=== PATIENT | female | born 1985 | race African-American/Black ===

== ENCOUNTER 2021-09-07 13:43 | Emergency (ER) | payer OTHER, BC ==
[2021-09-07] MEDS ORDERED: Ketorolac Tromethamine 30 MG/ML VIAL ONE (15:13)
== END 2021-09-07 15:10 | disposition home or self-care (01) ==
LOC: CSHERS 13:43
DX: S29.012A Strain of muscle and tendon of back wall of thorax, initial encounter (principal); V49.9XXA Car occupant (driver) (passenger) injured in unspecified traffic accident, initial encounter
CPT/HCPCS: 96372; 99283; J1885

== ENCOUNTER 2022-12-28 06:39 | Emergency (ER) | payer BC ==
[2022-12-28] MEDS ORDERED: Morphine 4 MG/ML VIAL ONE (07:35)
[2022-12-28] MEDS ORDERED: Ondansetron PF 4 MG/2 ML Vial ONE (07:36)
[2022-12-28 07:49] LABS: #Basophils 0.1 10x3/uL (0.0-0.2); #Monocytes 0.9 10x3/uL (0.0-1.1); %Basophils 0.4 % (0.0-2.0); %Eosinophils 0.4 % (0.0-6.0); %Lymphocytes 11.4 % (18.0-47.0); %Monocytes 8.3 % (0.0-10.0); %Neutrophils 79.1 % (40.0-75.0); Hematocrit 37.7 % (34.9-44.5); Hemoglobin 12.6 g/dL (12.0-15.5); Mean Corpuscular HGB CONC 33.4 g/dL (32.0-36.0); Mean Corpuscular Hemoglobin 28.2 pg (27.0-33.0); Mean Corpuscular Volume 84.3 fl (81.6-98.3); Mean Platelet Volume 9.1 fl (7.4-10.4); Platelet Count 347 10x3/uL (150-450); RBC Distribution Width 12.7 % (11.5-14.5); Red Blood Cell (RBC) Count 4.47 10x6/uL (3.90-5.03); White Blood Cell (WBC) Count 11.4 10x3/uL (3.5-10.5)
[2022-12-28 08:08] LABS: ALT (SGPT) 88 U/L (8-55); AST (SGOT) 137 U/L (5-34); Albumin 3.9 g/dL (3.5-5.0); Alkaline Phosphatase 139 U/L (40-110); Anion Gap 13 mmol/L (10-20); BUN (Urea Nitrogen) 8 mg/dL (7.0-18.7); Bilirubin, Total 0.7 mg/dL (0.2-1.2); Calc. Creatinine Clearance 0 mL/min (70-130); Calcium 8.9 mg/dL (7.8-10.44); Carbon Dioxide 20 mmol/L (22-29); Chloride 109 mmol/L (98-107); Estimated GFR 103; Globulin 2.7 g/dL (2.4-3.5); Glucose 81 mg/dL (70-105); Lipase 13 U/L (8-78); Potassium 4.3 mmol/L (3.5-5.1); Protein, Total 6.6 g/dL (6.0-8.3); Sodium 138 mmol/L (136-145)
== END 2022-12-28 09:43 | disposition home or self-care (01) ==
LOC: CSHERS 06:39
DX: K80.20 Calculus of gallbladder without cholecystitis without obstruction (principal); G43.909 Migraine, unspecified, not intractable, without status migrainosus
CPT/HCPCS: 76705; 80053; 83690; 83735; 85025; 96374; 96375; J2270; J2405

== ENCOUNTER 2023-02-03 11:46 | Outpatient (CLI) | payer BC ==
[2023-02-03 13:42] LABS: BHCG - Serum Negative (NEGATIVE); Pregs Control Background? CLEAR/WHITE (CLR/WHITE); Pregs Control Bar Appear? YES (CONTROL BAR)
[2023-02-03 13:45] LABS: ALT (SGPT) 42 U/L (8-55); AST (SGOT) 29 U/L (5-34); Albumin 3.8 g/dL (3.5-5.0); Alkaline Phosphatase 112 U/L (40-110); Anion Gap 10 mmol/L (10-20); BUN (Urea Nitrogen) 8 mg/dL (7.0-18.7); Bilirubin, Total 0.2 mg/dL (0.2-1.2); Calc. Creatinine Clearance 0 mL/min (70-130); Calcium 8.4 mg/dL (7.8-10.44); Carbon Dioxide 23 mmol/L (22-29); Chloride 108 mmol/L (98-107); Estimated GFR 113; Globulin 2.1 g/dL (2.4-3.5); Glucose 74 mg/dL (70-105); Potassium 4.3 mmol/L (3.5-5.1); Protein, Total 5.9 g/dL (6.0-8.3); Sodium 137 mmol/L (136-145)
== END 2023-02-03 11:47 | disposition home or self-care (01) ==
LOC: CSHLAB 11:46
PROVIDERS: ATTEND Surgery
DX: Z01.812 Encounter for preprocedural laboratory examination (principal); K80.20 Calculus of gallbladder without cholecystitis without obstruction
CPT/HCPCS: 80053; 84703

== ENCOUNTER 2023-02-13 10:35 | Day surgery (SDC) | payer BC ==
[2023-02-03 12:14] VITALS: BMI 32.9
[2023-02-13] MEDS ORDERED: PROPOFOL 20 ML ONE (12:22)
[2023-02-13] MEDS ORDERED: Fentanyl 250 MCG/5 ML VIAL ONE (12:22)
[2023-02-13] MEDS ORDERED: EPINEPHrine 1 MG/ML VIAL ONE (12:23)
[2023-02-13] MEDS ORDERED: Bupivacaine PF 0.5% 30 ML VIAL ONE (12:23)
[2023-02-13] MEDS ORDERED: Midazolam HCl 2 mg/2 ml Vial ONE (12:23)
[2023-02-13] MEDS ORDERED: Rocuronium Bromide 10 MG/ML (10ML VIAL) ONE (12:24)
[2023-02-13] MEDS ORDERED: Ondansetron PF 4 MG/2 ML Vial ONE (12:24)
[2023-02-13] MEDS ORDERED: Dexamethasone 4 mg/ml Vial ONE (12:24)
[2023-02-13] MEDS ORDERED: CEFAZOLIN 2 GM VIAL ONE (12:42)
[2023-02-13] MEDS ORDERED: Ketorolac Tromethamine 30 MG/ML VIAL ONE (13:34)
[2023-02-13] MEDS ORDERED: Glycopyrrolate 0.2 MG/ML 5 ML SYRINGE ONE (13:34)
[2023-02-13] MEDS ORDERED: Acetaminophen 325 MG TAB PO PRN (13:51)
[2023-02-13] MEDS ORDERED: HYDROcodone/Acetaminophen 5/325 mg Tablet PO PRN (13:51)
[2023-02-13] MEDS ORDERED: HYDROcodone/Acetaminophen 5/325 mg Tablet ONE (14:45)
== END 2023-02-13 15:45 | disposition home or self-care (01) ==
LOC: CSHSDC 10:35
PROVIDERS: ATTEND Surgery
PROC: 0FT44ZZ Resection of Gallbladder, Percutaneous Endoscopic Approach (ICD-10-PCS; principal; 2023-02-13)
DX: K80.10 Calculus of gallbladder with chronic cholecystitis without obstruction (principal); M06.9 Rheumatoid arthritis, unspecified; G43.909 Migraine, unspecified, not intractable, without status migrainosus; I10 Essential (primary) hypertension; M35.00 Sjogren syndrome, unspecified; Z79.899 Other long term (current) drug therapy
CPT/HCPCS: 88304; J0171; J1100; J1885; J2250; J2405; J2704; J3010; S0020

== ENCOUNTER 2023-02-16 08:03 | Inpatient (IN) | payer BC ==
[2023-02-16] MEDS ORDERED: Ondansetron PF 4 MG/2 ML Vial ONE (08:50)
[2023-02-16] MEDS ORDERED: Ketorolac Tromethamine 30 MG/ML VIAL ONE (08:50)
[2023-02-16 08:53] LABS: #Monocytes 0.8 10x3/uL (0.0-1.1); %Basophils 0.3 % (0.0-2.0); %Eosinophils 0.2 % (0.0-6.0); %Lymphocytes 17.2 % (18.0-47.0); %Monocytes 6.6 % (0.0-10.0); %Neutrophils 75.3 % (40.0-75.0); Hematocrit 21.1 % (34.9-44.5); Mean Corpuscular HGB CONC 33.2 g/dL (32.0-36.0); Mean Corpuscular Hemoglobin 28.1 pg (27.0-33.0); Mean Corpuscular Volume 84.7 fl (81.6-98.3); Mean Platelet Volume 9.4 fl (7.4-10.4); Platelet Count 271 10x3/uL (150-450); Red Blood Cell (RBC) Count 2.49 10x6/uL (3.90-5.03); White Blood Cell (WBC) Count 11.9 10x3/uL (3.5-10.5)
[2023-02-16 09:08] LABS: ALT (SGPT) 67 U/L (8-55); AST (SGOT) 51 U/L (5-34); Albumin 3.5 g/dL (3.5-5.0); Alkaline Phosphatase 101 U/L (40-110); Anion Gap 14 mmol/L (10-20); BUN (Urea Nitrogen) 6 mg/dL (7.0-18.7); Bilirubin, Total 0.4 mg/dL (0.2-1.2); Calc. Creatinine Clearance 0 mL/min (70-130); Calcium 8.1 mg/dL (7.8-10.44); Carbon Dioxide 20 mmol/L (22-29); Chloride 110 mmol/L (98-107); Estimated GFR 115; Globulin 2.2 g/dL (2.4-3.5); Glucose 124 mg/dL (70-105); Potassium 3.6 mmol/L (3.5-5.1); Protein, Total 5.7 g/dL (6.0-8.3); Sodium 140 mmol/L (136-145)
[2023-02-16 09:22] LABS: Lipase Less than 4 U/L (8-78)
[2023-02-16] MEDS ORDERED: Iopamidol 300 61% 100 ML VIAL FS ONE (09:24)
[2023-02-16] MEDS ORDERED: Morphine 4 MG/ML VIAL ONE (10:21)
[2023-02-16] MEDS ORDERED: Lactated Ringer's 1,000 ML IV SCH (11:52)
[2023-02-16] MEDS ORDERED: Morphine 4 MG/ML VIAL SLOW IVP PRN (11:52)
[2023-02-16] MEDS ORDERED: Ondansetron PF 4 MG/2 ML Vial IVP PRN ×2 (11:52→13:21)
[2023-02-16] MEDS ORDERED: Ondansetron ODT 4 MG TAB SL PRN (11:52)
[2023-02-16 12:04] VITALS: BMI 32.9
[2023-02-16] MEDS ORDERED: Promethazine HCl 25 MG/ML VIAL IM PRN (13:21)
[2023-02-16] MEDS ORDERED: Ipratropium/Albuterol 3 ML NEB NEB PRN (13:21)
[2023-02-16] MEDS ORDERED: Mag-Al 1200 mg/1200 mg/30 ML UDCUP PO PRN (13:21)
[2023-02-16] MEDS ORDERED: hydrALAZINE 20 MG/ML VIAL SLOW IVP PRN (13:21)
[2023-02-16] MEDS: HYDROmorphone 0.5 MG/0.5 ML SYRINGE SLOW IVP PRN ×3 (14:44→21:45)
[2023-02-16] MEDS: Ketorolac Tromethamine 30 MG/ML VIAL IVP SCH ×2 (17:19→23:35)
[2023-02-16] MEDS: Calcium Carbonate 500 MG ChewTAB PO PRN ×2 (18:50→23:46)
[2023-02-16 19:52] LABS: #Neutrophils 10.7 10x3/uL (1.5-8.4); %Basophils 0.2 % (0.0-2.0); %Eosinophils 0.3 % (0.0-6.0); %Lymphocytes 7.8 % (18.0-47.0); %Monocytes 7.5 % (0.0-10.0); %Neutrophils 83.5 % (40.0-75.0); Hematocrit 23.1 % (34.9-44.5); Hemoglobin 7.7 g/dL (12.0-15.5); Mean Corpuscular HGB CONC 33.3 g/dL (32.0-36.0); Mean Corpuscular Hemoglobin 28.2 pg (27.0-33.0); Mean Corpuscular Volume 84.6 fl (81.6-98.3); Mean Platelet Volume 9.1 fl (7.4-10.4); Platelet Count 270 10x3/uL (150-450); RBC Distribution Width 13.2 % (11.5-14.5); Red Blood Cell (RBC) Count 2.73 10x6/uL (3.90-5.03); White Blood Cell (WBC) Count 12.8 10x3/uL (3.5-10.5)
[2023-02-16] MEDS: Famotidine/PF 20 mg/2ml Vial SLOW IVP SCH (20:22)
[2023-02-16] MEDS: Lactated Ringer's 1,000 ML IV SCH (21:58)
[2023-02-17] MEDS: HYDROmorphone 0.5 MG/0.5 ML SYRINGE SLOW IVP PRN ×5 (00:46→19:04)
[2023-02-17] MEDS: Lactated Ringer's 1,000 ML IV SCH ×2 (04:17→12:11)
[2023-02-17 05:01] LABS: #Monocytes 0.8 10x3/uL (0.0-1.1); %Basophils 0.2 % (0.0-2.0); %Eosinophils 0.1 % (0.0-6.0); %Lymphocytes 8.2 % (18.0-47.0); %Monocytes 6.1 % (0.0-10.0); %Neutrophils 84.9 % (40.0-75.0); Hematocrit 23.5 % (34.9-44.5); Hemoglobin 7.9 g/dL (12.0-15.5); Mean Corpuscular HGB CONC 33.6 g/dL (32.0-36.0); Mean Corpuscular Hemoglobin 28.3 pg (27.0-33.0); Mean Corpuscular Volume 84.2 fl (81.6-98.3); Mean Platelet Volume 9.2 fl (7.4-10.4); Platelet Count 297 10x3/uL (150-450); RBC Distribution Width 13.2 % (11.5-14.5); Red Blood Cell (RBC) Count 2.79 10x6/uL (3.90-5.03)
[2023-02-17] MEDS: Ketorolac Tromethamine 30 MG/ML VIAL IVP SCH ×3 (06:05→17:19)
[2023-02-17] MEDS: CEFAZOLIN 2 GM in Sodium Chloride 0.9% 100 ML IVPB SCH ×2 (09:43→17:03)
[2023-02-17] MEDS: Famotidine/PF 20 mg/2ml Vial SLOW IVP SCH ×2 (09:43→21:28)
[2023-02-17] MEDS ORDERED: Bupivacaine PF 0.5% 30 ML VIAL ONE (13:31)
[2023-02-17] MEDS ORDERED: EPINEPHrine 1 MG/ML VIAL ONE (13:31)
[2023-02-17] MEDS ORDERED: Ondansetron PF 4 MG/2 ML Vial ONE (13:41)
[2023-02-17] MEDS ORDERED: Rocuronium Bromide 10 MG/ML (10ML VIAL) ONE (13:41)
[2023-02-17] MEDS ORDERED: Fentanyl 250 MCG/5 ML VIAL ONE (13:41)
[2023-02-17] MEDS ORDERED: Dexamethasone 4 mg/ml Vial ONE (13:41)
[2023-02-17] MEDS ORDERED: Lidocaine 2% PF 5 ML VIAL ONE (13:41)
[2023-02-17] MEDS ORDERED: Midazolam HCl 2 mg/2 ml Vial ONE (13:41)
[2023-02-17] MEDS ORDERED: PROPOFOL 40 ML ONE (13:41)
[2023-02-17] MEDS ORDERED: fentaNYL 50 mcg/mL 1 mL Vial ONE (13:59)
[2023-02-17 15:59] LABS: Hematocrit 21.3 % (34.9-44.5); Hemoglobin 7.1 g/dL (12.0-15.5)
[2023-02-17] MEDS ORDERED: HYDROcodone/Acetaminophen 5/325 mg Tablet PO PRN (16:36)
[2023-02-17] MEDS: HYDROcodone/Acetaminophen 5/325 mg Tablet PO PRN (21:28)
[2023-02-18] MEDS: Ketorolac Tromethamine 30 MG/ML VIAL IVP SCH ×2 (01:07→05:24)
[2023-02-18] MEDS: HYDROmorphone 0.5 MG/0.5 ML SYRINGE SLOW IVP PRN (05:25)
[2023-02-18 05:55] LABS: #Monocytes 1.1 10x3/uL (0.0-1.1); #Neutrophils 12.3 10x3/uL (1.5-8.4); %Basophils 0.2 % (0.0-2.0); %Eosinophils 0.2 % (0.0-6.0); %Monocytes 7.2 % (0.0-10.0); %Neutrophils 82.7 % (40.0-75.0); Hematocrit 20.6 % (34.9-44.5); Hemoglobin 6.9 g/dL (12.0-15.5); Mean Corpuscular HGB CONC 33.5 g/dL (32.0-36.0); Mean Corpuscular Hemoglobin 28.3 pg (27.0-33.0); Mean Corpuscular Volume 84.4 fl (81.6-98.3); Mean Platelet Volume 9.8 fl (7.4-10.4); Platelet Count 310 10x3/uL (150-450); RBC Distribution Width 13.4 % (11.5-14.5); Red Blood Cell (RBC) Count 2.44 10x6/uL (3.90-5.03); White Blood Cell (WBC) Count 14.9 10x3/uL (3.5-10.5)
[2023-02-18 08:46] VITALS: BP 123/80; TEMP 100.3
[2023-02-18] MEDS: HYDROcodone/Acetaminophen 5/325 mg Tablet PO PRN (08:54)
[2023-02-18] MEDS: Famotidine/PF 20 mg/2ml Vial SLOW IVP SCH (08:54)
== END 2023-02-18 10:38 | disposition home or self-care (01) | DRG 908 ==
LOC: CSHERS 08:03 → CSHTELE 10:19 → OBSVTOIN 13:21
PROVIDERS: ADMIT Surgery; ATTEND Surgery
PROC: 0D964ZZ Drainage of Stomach, Percutaneous Endoscopic Approach (ICD-10-PCS; principal; 2023-02-17)
DX: K91.870 Postprocedural hematoma of a digestive system organ or structure following a digestive system procedure (principal); D62 Acute posthemorrhagic anemia; K91.840 Postprocedural hemorrhage of a digestive system organ or structure following a digestive system procedure; M06.9 Rheumatoid arthritis, unspecified; G43.909 Migraine, unspecified, not intractable, without status migrainosus; M35.00 Sjogren syndrome, unspecified; F41.9 Anxiety disorder, unspecified; F32.A Depression, unspecified; Y83.8 Other surgical procedures as the cause of abnormal reaction of the patient, or of later complication, without mention of misadventure at the time of the procedure; Z90.49 Acquired absence of other specified parts of digestive tract
CPT/HCPCS: 36415; 71045; 74177; 80053; 83690; 85025; 86850; 86900; 86901; 96361; 96374; 96375; C1889; G0378; J0171; J1100; J1170; J1885; J2001; J2250; J2270; J2405; J2704; J3010; J3490; J7120; Q9967; S0020; S0028

== ENCOUNTER 2024-03-17 11:26 | Emergency (ER) | payer BC, OTHER ==
[2024-03-17] MEDS ORDERED: Morphine 4 MG/ML VIAL ONE (12:41)
[2024-03-17] MEDS ORDERED: Ondansetron PF 4 MG/2 ML Vial ONE (12:41)
[2024-03-17 13:08] LABS: #Basophils 0.03 10x3/uL (0.0-0.2); #Eosinophils 0.04 10x3/uL (0.0-0.5); #Monocytes 0.43 10x3/uL (0.0-1.1); #Neutrophils 3.41 10x3/uL (1.5-8.4); %Basophils 0.5 % (0.0-2.0); %Eosinophils 0.6 % (0.0-6.0); %Lymphocytes 38.4 % (18.0-47.0); %Monocytes 6.8 % (0.0-10.0); %Neutrophils 53.5 % (40.0-75.0); Hematocrit 35.7 % (34.9-44.5); Hemoglobin 11.9 g/dL (12.0-15.5); Mean Corpuscular HGB CONC 33.3 g/dL (32.0-36.0); Mean Corpuscular Hemoglobin 28.1 pg (27.0-33.0); Mean Corpuscular Volume 84.4 fL (81.6-98.3); Mean Platelet Volume 9.3 fL (7.4-10.4); Platelet Count 335 10x3/uL (150-450); RBC Distribution Width 12.3 % (11.5-14.5); Red Blood Cell (RBC) Count 4.23 10x6/uL (3.90-5.03); White Blood Cell (WBC) Count 6.36 10x3/uL (3.5-10.5)
[2024-03-17 13:45] LABS: ALT (SGPT) 67 U/L (8-55); AST (SGOT) 37 U/L (5-34); Albumin 3.9 g/dL (3.5-5.0); Alkaline Phosphatase 181 U/L (40-110); Anion Gap 9 mmol/L (10-20); BUN (Urea Nitrogen) 8 mg/dL (7.0-18.7); Bilirubin, Total 0.2 mg/dL (0.2-1.2); Calc. Creatinine Clearance 0 mL/min (70-130); Calcium 8.8 mg/dL (7.8-10.44); Carbon Dioxide 25 mmol/L (22-29); Chloride 109 mmol/L (98-107); Estimated GFR 111; Globulin 2.9 g/dL (2.4-3.5); Glucose 77 mg/dL (70-105); Lipase 16 U/L (8-78); Potassium 3.9 mmol/L (3.5-5.1); Protein, Total 6.8 g/dL (6.0-8.3); Sodium 139 mmol/L (136-145)
[2024-03-17 13:53] LABS: Bilirubin Neg (Negative); Blood, Urine Negative (Negative); Glucose, Urine (Dipstick) Normal (Negative); Ketone, Urine Negative (Negative); Leukocyte Negative (Negative); Nitrite Negative (Negative); Protein, Urine (Dipstick) 30 mg/dl (Neg-Trace)
[2024-03-17 13:56] LABS: BHCG - Serum Negative (NEGATIVE); Pregs Control Background? CLEAR/WHITE (CLR/WHITE); Pregs Control Bar Appear? YES (CONTROL BAR)
[2024-03-17 15:09] LABS: Clarity Hazy (Clear)
[2024-03-17 15:12] LABS: CAUTI Indications for Culture Pelvic or flank pain; RBC/HPF 0-3 HPF (0-3)
[2024-03-17 15:19] LABS: Mucous/LPF 4+ LPF (<2+)
[2024-03-17 15:20] LABS: Bacteria/HPF 1+ HPF (None Seen); Urine Culture Reflex No No
== END 2024-03-17 15:03 | disposition home or self-care (01) ==
LOC: CSHERS 11:26
DX: R10.9 Unspecified abdominal pain (principal)
CPT/HCPCS: 74177; 80053; 81001; 83690; 84703; 85025; 96361; 96374; 96375; J2270; J2405